=== PATIENT | female | born 1945 | race Caucasian/White ===

== ENCOUNTER → 2018-04-15 | Outpatient (CLI) | payer MEDICARE, BC ==
[~2018-04-15] MED LIST: AMOX-291 PO; ASPI-496 PO; ATOR20TA PO; BUTA-177 PO; CA C1TAB62 PO; CINNAMON PO; DULO30CA2 PO; ESTR1TAB15 PO; FISH OIL PO; FLAX SEED OIL PO; HYDR-3285 PO; LIDOCAINE PATCH TP; LOSA1TAB25 PO; MULT-717 PO; OMEGA Q PLUS 100 PO; PREG75CA PO; VIT1CAPS42 PO; ZOLP10TA PO
[2018-04-15 11:17] LABS: BASOPHILS # (AUTO) 0.03 x10^3/uL (0-0.1); BASOPHILS % (AUTO) 0 % (0-1); EOSINOPHILS # (AUTO) 0.12 x10^3/uL (0-0.4); EOSINOPHILS % (AUTO) 2 % (1-7); LYMPHOCYTES # (AUTO) 1.59 x10^3/uL (1-3.4); LYMPHOCYTES % (AUTO) 22 % (22-44); MD NO; MEAN CORPUSCULAR HEMOGLOBIN 30.6 pg (27.0-34.8); MEAN CORPUSCULAR HGB CONC 33.9 g/dL (32.4-35.8); MONOCYTES # (AUTO) 0.92 x10^3/uL (0.2-0.8); MONOCYTES % (AUTO) 13 % (2-9); NEUTROPHILS # (AUTO) 4.47 x10^3/uL (1.8-6.8); NEUTROPHILS % (AUTO) 63 % (42-75); PLATELET COUNT 385 x10^3/uL (130-400); RED BLOOD COUNT 4.16 x10^6/uL (3.82-5.3); RED CELL DISTRIBUTION WIDTH 14.2 % (9.6-15.2)
[2018-04-15 11:19] LABS: ALANINE AMINOTRANSFERASE 85 U/L (12-78); ALBUMIN 3.6 g/dL (3.4-5.0); ANION GAP 6 mmol/L (5-15); CALCIUM 9.1 mg/dL (8.5-10.1); CHLORIDE 105 mmol/L (98-107); CREATININE 0.71 mg/dL (0.55-1.02); INTERNATIONAL NORMALIZED RATIO 1.03 (0.93-1.1); PROTHROMBIN TIME 10.8 Seconds (9.6-11.5)
[2018-04-15 11:22] LABS: ALKALINE PHOSPHATASE 131 U/L (45-117); BILIRUBIN,TOTAL 0.8 mg/dL (0.2-1.0); TOTAL PROTEIN 7.4 g/dL (6.4-8.2)
[2018-04-15 11:23] LABS: MICROSCOPIC INDICATED
[2018-04-15 11:30] LABS: CULTURE INDICATED? YES
== END | disposition home or self-care (01) ==
LOC: STAR 09:57
PROVIDERS: ATTEND Neurological Surgery
DX: Z01.818 Encounter for other preprocedural examination (principal); M51.26 Other intervertebral disc displacement, lumbar region
CPT/HCPCS: 36415; 71046; 80053; 81001; 85025; 85610; 85730; 87086; 93005

== ENCOUNTER 2018-05-02 07:00 | Day surgery (SDC) | payer MEDICARE, BC ==
[~2018-05-02] VITALS: Ht 165.1 cm; Wt 84.6 kg
[2018-05-02 07:21] VITALS: BP 172/94
[2018-05-02] MEDS ORDERED: LACTATED RINGERS 1,000 ML IV SCH (07:28)
[2018-05-02] MEDS ORDERED: THROMBIN 5,000 UNIT VIAL TP ONE (07:59)
[2018-05-02] MEDS ORDERED: methylPREDNISolone SOD SUCC 125 MG/2 ML ONE (08:22)
[2018-05-02] MEDS ORDERED: FENTANYL PF 100 MCG/2ML EPIDPUSH ONE (08:28)
[2018-05-02] MEDS ORDERED: FENTANYL PF 100 MCG/2ML ONE (08:36)
[2018-05-02] MEDS ORDERED: HYDROmorphone 1 MG/ML, 1ML ONE (08:36)
[2018-05-02] MEDS ORDERED: OXYcodone 5 MG/5 ML ORAL.SOL UDC ONE (08:36)
[2018-05-02] MEDS ORDERED: HYDR-3245 PO (08:58)
[2018-05-02] MEDS ORDERED: TIZA2TAB PO (08:58)
[2018-05-02] MEDS ORDERED: LABETALOL 5MG/ML, 20ML IV PRN (09:00)
[2018-05-02] MEDS ORDERED: PROMETHAZINE 12.5 MG SUPP PR PRN (09:00)
[2018-05-02] MEDS ORDERED: ONDANSETRON ODT 8 MG PO PRN (09:00)
[2018-05-02] MEDS ORDERED: ONDANSETRON 2MG/ML, 2ML IV PRN (09:00)
[2018-05-02] MEDS ORDERED: EPHEDRINE 50 MG/ML, 1ML IM PRN (09:00)
[2018-05-02] MEDS ORDERED: ACETAMINOPHEN 325 MG TABLET PO PRN (09:00)
[2018-05-02] MEDS ORDERED: DIPHENHYDRAMINE 50 MG/ML, 1ML IVPush PRN (09:00)
[2018-05-02] MEDS ORDERED: PROMETHAZINE 25 MG/ML, 1ML IV PRN (09:00)
[2018-05-02] MEDS ORDERED: DIAZEPAM 5 MG/ML, 2ML IVPush PRN (09:00)
[2018-05-02] MEDS ORDERED: MIDAZOLAM 1 MG/ML, 2ML IV PRN (09:00)
[2018-05-02] MEDS ORDERED: MEPERIDINE/PF 25MG/0.5ML IVPush PRN (09:00)
[2018-05-02] MEDS ORDERED: PROMETHAZINE 25 MG SUPP PR PRN (09:00)
[2018-05-02] MEDS ORDERED: EPHEDRINE 50 MG/ML, 1ML IVPush PRN (09:00)
[2018-05-02] MEDS ORDERED: MORPHINE SULFATE 4 MG/ML, 1ML IVPush PRN (09:00)
[2018-05-02] MEDS ORDERED: OXYcodone 5 MG/5 ML ORAL.SOL UDC PO PRN (09:00)
[2018-05-02] MEDS: FENTANYL PF 100 MCG/2ML IV PRN ×2 (09:22→09:35)
[2018-05-02] MEDS ORDERED: ACETAMINOPHEN 650 MG/20.3 ML UDC ONE (09:28)
[2018-05-02] MEDS ORDERED: ONDANSETRON 2MG/ML, 2ML ONE (14:45)
[2018-05-02] MEDS ORDERED: PROPOFOL 10 MG/ML, 50ML ONE (14:45)
[2018-05-02] MEDS ORDERED: PROPOFOL 10 MG/ML, 20ML ONE (14:45)
[2018-05-02] MEDS ORDERED: ROCURONIUM 10MG/ML,5ML ONE (14:45)
[2018-05-02] MEDS ORDERED: SUCCINYLCHOLINE 20 MG/ML, 10ML ONE (14:45)
[2018-05-02] MEDS ORDERED: DEXAMETHASONE 4 MG/ML, 1ML ONE (14:45)
[2018-05-02] MEDS ORDERED: CEFAZOLIN 1,000 MG ONE (14:45)
== END 2018-05-02 14:10 | disposition home or self-care (01) ==
LOC: OUT 07:00
PROVIDERS: ATTEND Neurological Surgery
DX: M48.061 Spinal stenosis, lumbar region without neurogenic claudication (principal); E78.00 Pure hypercholesterolemia, unspecified; G43.909 Migraine, unspecified, not intractable, without status migrainosus; G62.9 Polyneuropathy, unspecified; Z96.653 Presence of artificial knee joint, bilateral; Z90.722 Acquired absence of ovaries, bilateral; Z90.49 Acquired absence of other specified parts of digestive tract; Z98.890 Other specified postprocedural states; Z88.8 Allergy status to other drugs, medicaments and biological substances
CPT/HCPCS: 63030; 72100; J0330; J0690; J1100; J2405; J2704; J2930; J3010; J7120

== ENCOUNTER 2018-09-23 11:39 | Outpatient (CLI) | payer MEDICARE, BC | END 2018-09-23 23:59 | disposition home or self-care (01) | LOC: STAR 11:39 | PROVIDERS: ATTEND Neurological Surgery | DX: Z01.818 Encounter for other preprocedural examination (principal); M47.16 Other spondylosis with myelopathy, lumbar region; R94.31 Abnormal electrocardiogram [ECG] [EKG] | CPT/HCPCS: 36415; 71046; 80053; 81003; 85025; 85610; 85730; 93005 ==

== ENCOUNTER → 2019-12-18 | Outpatient (CLI) | payer MEDICARE, BC ==
[~2019-12-18] MED LIST changes: +HYDR-3245 PO; +LOSA50TA14 PO; +OXYC-307 PO; +TIZA2CAP2 PO; +TIZA2TAB4 PO
[2019-12-18 15:09] LABS: ANION GAP 3 mmol/L (5-15); CHLORIDE 108 mmol/L (98-107); CREATININE 0.77 mg/dL (0.55-1.02)
[2019-12-18 15:16] LABS: BASOPHILS % (AUTO) 1 % (0-1); EOSINOPHILS % (AUTO) 2 % (1-7); LYMPHOCYTES % (AUTO) 33 % (22-44); MEAN CORPUSCULAR HGB CONC 33.3 g/dL (32.4-35.8); MEAN PLATELET VOLUME 7.6 fL (7.4-10.4); MICROSCOPIC NOT IND; MONOCYTES % (AUTO) 15 % (2-9); NEUTROPHILS % (AUTO) 49 % (42-75); PLATELET COUNT 365 x10^3/uL (130-400); RED BLOOD COUNT 4.71 x10^6/uL (3.82-5.3); RED CELL DISTRIBUTION WIDTH 14.9 % (9.6-15.2)
[2019-12-18 15:21] LABS: MD NO
[2019-12-18 15:26] LABS: PROTHROMBIN TIME 10.6 Seconds (9.6-11.5)
== END | disposition home or self-care (01) ==
LOC: RAD 14:44
PROVIDERS: ATTEND Anesthesiology
DX: Z01.89 Encounter for other specified special examinations (principal)
CPT/HCPCS: 36415; 71046; 80048; 81003; 85025; 85610; 85730; 93005

== ENCOUNTER → 2020-02-16 | Outpatient (CLI) | payer MEDICARE, BC ==
[2020-02-16 12:23] LABS: BASOPHILS % (AUTO) 1 % (0-1); EOSINOPHILS % (AUTO) 2 % (1-7); LYMPHOCYTES % (AUTO) 31 % (22-44); MEAN CORPUSCULAR HEMOGLOBIN 30.5 pg (27.0-34.8); MEAN PLATELET VOLUME 7.3 fL (7.4-10.4); MONOCYTES % (AUTO) 14 % (2-9); NEUTROPHILS % (AUTO) 52 % (42-75); PLATELET COUNT 366 x10^3/uL (130-400); RED BLOOD COUNT 4.62 x10^6/uL (3.82-5.3); RED CELL DISTRIBUTION WIDTH 14.9 % (9.6-15.2)
[2020-02-16 12:27] LABS: MD NO
[2020-02-16 12:32] LABS: CHLORIDE 106 mmol/L (98-107)
[2020-02-16 12:34] LABS: INTERNATIONAL NORMALIZED RATIO 0.95 (0.93-1.1); PROTHROMBIN TIME 10.1 Seconds (9.6-11.5)
[2020-02-16 12:42] LABS: ANION GAP 4 mmol/L (5-15); CALCIUM 9.1 mg/dL (8.5-10.1); CREATININE 0.81 mg/dL (0.55-1.02)
[2020-02-16 13:13] LABS: MICROSCOPIC INDICATED
== END | disposition home or self-care (01) ==
LOC: LAB 12:05
PROVIDERS: ATTEND Anesthesiology
DX: Z01.89 Encounter for other specified special examinations (principal)
CPT/HCPCS: 36415; 80048; 81001; 85025; 85610; 85730; 87086